=== PATIENT | female | born 1945 | race Two or more races ===

== ENCOUNTER → 2025-04-05 | Outpatient (CLI) | payer MEDICARE, MEDICAID, SELFPAY ==
--- NOTE | 2025-04-05 | XR_ITS ---
Examination: Wrist, right 3 views Technique: Wrist AP, oblique, lateral 3 views Date and time of exam: April 05, 2025 1227 hours INDICATIONS: Right wrist pain and numbness beginning 2 months ago. FINDINGS: Significant osteopenia Mild to moderate narrowing radiocarpal joint Soft tissue vascular calcification Advanced osteoarthritis first carpometacarpal joint No acute fracture IMPRESSION: Advanced osteoarthritis right first carpometacarpal joint
== END | disposition home or self-care (01) ==
LOC: CDIM 11:08
PROVIDERS: PCP Nurse Practitioner Primary Care; Referring Provider Nurse Practitioner Primary Care; Visit Provider Nurse Practitioner Primary Care
DX: M18.11 Unilateral primary osteoarthritis of first carpometacarpal joint, right hand (principal)
CPT/HCPCS: 73110

== ENCOUNTER → 2025-05-22 | Outpatient (CLI) | payer MEDICARE, MEDICAID, SELFPAY ==
--- NOTE | 2025-05-22 | XR_ITS ---
Examination: Wrist, left 3 views Technique: Wrist AP, oblique, lateral 3 views Date and time of exam: May 22, 2025 1120 hours INDICATIONS: Left wrist pain several months. FINDINGS: Severe osteopenia Soft tissue vascular calcification. Mild to moderate narrowing radiocarpal and intercarpal joints. Advanced arthritic change first carpometacarpal joint most likely osteoarthritis IMPRESSION: Advanced arthritic change first carpometacarpal joint No fractures No avascular necrosis
--- NOTE | 2025-05-22 | XR_ITS ---
Examination: Hand, left 3 views Technique: Hand AP, oblique, lateral 3 views Date and time of exam: May 22, 2025 1120 hours INDICATIONS: Left hand wrist pain several months FINDINGS: Severe osteopenia Significant osteoarthritis first carpometacarpal joint Significant osteoarthritis interphalangeal joints No fractures IMPRESSION: Significant arthritic change as above
== END | disposition home or self-care (01) ==
PROVIDERS: PCP Physician Assistant
DX: M18.12 Unilateral primary osteoarthritis of first carpometacarpal joint, left hand (principal)
CPT/HCPCS: 73110; 73130